=== PATIENT | male | born 1965 | race Two or more races ===

== ENCOUNTER 2024-10-18 08:35 | Emergency (ER) | payer MEDICAID, SELFPAY ==
[2024-10-18 08:11] VITALS: PULSE 82; RESP 18; O2SAT 99
[2024-10-18 08:22] VITALS: BP 133/71; RESP 18; TEMP 36.9; O2SAT 98
[2024-10-18 08:23] VITALS: BMI 23.9
--- NOTE | 2024-10-18 08:41 | XR_ITS ---
Examination: Ribs, left, with PA chest, 5 views Technique: Chest PA, RIBS AP, RPO, LPO, AP coned lower ribs 5 views Exam date and time: October 18, 2024 0843 hours INDICATIONS: Patient fell 3 days ago with injury to the left chest, left rib pain Findings: Normal heart size No pneumothorax Old fracture left sixth rib anteriorly The films are underpenetrated IMPRESSION: No acute fracture
--- NOTE | 2024-10-18 08:44 | EDNOTE_ITS ---
ED Fall Injury RME/HPI General Chief Complaint: Fall Stated Complaint: FALL ON ROCKS X 3 DAYS AGO; PAIN L) BACK/RIBS Time Seen by Provider: 10/18/24 08:40 Source: patient Arrival date/time: 10/18/24 08:35 59-year-old male with no known medical history presents to the emergency room with a chief complaint of pain to his left rib area after a fall that occurred 3 days ago Mode of arrival: ambulatory Limitations: no limitations Related Data Previous Rx's ?Medication ?Instructions ?Recorded acetaminophen 500 mg capsule 1,000 mg (2 x 500 mg) PO Q6H PRN 11/24/19 pain #20 caps nystatin 100,000 unit/gram topical 1 applic topical TI D #60 grams 08/27/22 cream pantoprazole 40 mg tablet,delayed 40 mg PO QDAY #30 ta bs 03/03/24 release (Protonix) Allergies Allergy/AdvReac Type Severity Reaction Status Date / Time No Known Allergies Allergy Verified 10/18/24 08:16 Review of Systems Review of Systems Systems Reviewed: All systems reviewed, normal except as documented Constitutional Constitutional: Reports system reviewed and no additional complaints, except as documented, Denies fatigue, Denies fever(s), Denies headache(s) and Denies weakness Eyes Eyes: Reports system reviewed and no additional complaints, except as documented, Denies blurry vision and Denies change in vision ENT Ears, Nose, Mouth, and Throat: Reports system reviewed and no additional complaints, except as documented, Denies otalgia, Denies headache(s), Denies nasal congestion, Denies throat swelling and Denies vertigo Cardiovascular Cardiovascular: Reports system reviewed and no additional complaints, except as documented, Denies chest pain, Denies dyspnea and Denies dyspnea on exertion Respiratory Respiratory: Reports system reviewed and no additional complaints, except as documented, Denies chest congestion, Denies cough, Denies dyspnea, Denies dyspnea on exertion and Denies wheezing Gastrointestinal Gastrointestinal: Reports system reviewed and no additional complaints, except as documented, Denies abdominal pain, Denies cramping, Denies nausea and Denies vomiting Genitourinary Genitourinary: Reports system reviewed and no additional complaints, except as documented, Denies dysuria and Denies hematuria Musculoskeletal Musculoskeletal: Reports system reviewed and no additional complaints, except as documented, Reports arthralgias and Denies back pain Integumentary/Breasts Skin/Breast: Reports system reviewed and no additional complaints, except as documented and Denies wounds Neurologic Neurologic: Reports system reviewed and no additional complaints, except as documented, Denies confusion, Denies headache(s), Denies lack of coordination, Denies vertigo and Denies weakness Psychiatric Psychiatric: Reports system reviewed and no additional complaints, except as documented, Denies anxiety, Denies confusion, Denies depression, Denies paranoia, Denies suicidal ideation and Denies tactile hallucinations Endocrine Endocrine: Reports system reviewed and no additional complaints, except as documented and Denies fatigue Hematologic/Lymphatic Hematologic/Lymphatic: Reports system reviewed and no additional complaints, except as documented and Denies lymphadenopathy Allergic/Immunologic Allergic/Immunologic: Reports system reviewed and no additional complaints, except as documented, Denies throat swelling, Denies urticaria and Denies wheezing Past Medical History Past Medical History NEUROLOGIC: Negative Seizures CARDIAC: Negative Congestive Heart Failure RESPIRATORY: Negative Chronic Obstructive Pulmonary Disease (COPD) GENITOURINARY: Negative Renal Disease ENDOCRINE: Negative Diabetes Mellitus Type 1 or Diabetes Mellitus Type 2 PSYCHO/SOCIAL: Positive Depression and Anxiety OTHER HISTORY: Positive Blood Transfusions; Negative Blood Transfusion Reaction or Anesthesia Reactions Social History SMOKING STATUS: Never smoker ED Exam General Limitations: Present no limitations General appearance: Present alert and in no apparent distress Head Head exam: Present atraumatic Eye Eye exam: Present normal appearance, PERRL and EOMI ENT ENT exam: Present normal exam, normal oropharynx and mucous membranes moist Neck Neck exam: Present normal inspection, full ROM and trachea midline Chest Chest inspection: Present normal inspection, symmetric chest wall rise and tenderness Expanded Chest Exam Trauma: Absent crepitus, laceration, abrasion, ecchymosis, wound, penetrating wound or surgical incision Breast: left: tenderness Respiratory Respiratory exam: Present normal lung sounds bilaterally; Absent respiratory distress, wheezes, stridor, accessory muscle use or prolonged expiratory phase Cardiovascular Cardiovascular exam: Present regular rate, normal rhythm and normal heart sounds Abdominal Exam Abdominal exam: Present soft and normal bowel sounds Extremities Exam Extremities exam: Present normal inspection and full ROM Back Exam Back exam: Present normal inspection and full ROM Neurological Exam Neurological exam: Present alert, oriented X3 and CN II-XII intact Psychiatric Psychiatric exam: Present normal affect and normal mood Skin Skin exam: Present warm, dry, intact and normal color Course Quality Measures none Orders Category Date Time Status XR ribs LT min 3V w CXR1V Stat Exams 10/18/24 08:41 Completed Vital Signs Vital signs: Vital Signs Temperature 98.4 F 10/18/24 08:22 Respiratory Rate 18 10/18/24 08:22 Blood Pressure 133/71 H 10/18/24 08:22 Pulse Oximetry (%) 98 10/18/24 08:22 Oxygen Delivery Method Room Air 10/18/24 08:22 O2 saturation 98% within normal limits Fall MDM Narrative MDM Narrative:: 59-year-old male with no known medical history presents to the emergency room with a chief complaint of pain to his left rib area after a fall that occurred 3 days ago Patient is hemodynamically stable. There is no tachypnea no tachycardia and O2 saturation is 98% on room air Physical examination shows clear bilateral lung sounds with no wheezing stridor or any abnormal breath sounds Chest x-ray was completed and was negative for any acute rib fractures any pneumothorax or hemothorax. Patient was discharged and educated to follow-up with primary care provider and return to the emergency room for any evidence of worsening signs or symptoms Patient data External records reviewed:: [facility] previous records Clinical information provided by:: patient Social determinants that could affect healthcare access:: none Patient has the following chronic illnesses:: No chronic illness How is presenting disease/condition affected by chronic disease/condition?: no chronic disease Evaluation data The following diagnostics were reviewed and interpreted by me:: lab results and radiology exam(s) Lab and/or radiology exams considered but not ordered:: Labs and radiology exams considered and ordered Interpretation Summary: Left rib x-ray with chest [id number]: Normal heart size No pneumothorax Old fracture left sixth rib anteriorly The films are underpenetrated IMPRESSION: No acute fracture Medications / Prescriptions Medications or Prescriptions considered but not ordered:: No medication given Medication administrations:: No medication given Consultations Consultation(s) initiated? (list below): No Diagnosis Fall Differential Diagnosis: other (Left rib contusion/left rib fracture/pneumonia/hemothorax/pneumothorax) Most likely diagnosis given after review of the tests above:: Rib contusion Admission Indicated Admission indicated?: not indicated Admission Request Was there a request for admission?: No Disposition Plan Disposition Plan: Discharge Discharge Attestation Discharge Attestation: The patient and all family members were given an opportunity to ask questions and understood the discharge instructions. Discharge instructions specifically effects, indications for sooner follow up or return to the emergency department, and the expected course of current diagnosis. Patient condition: Stable Discharge Plan Plan Patient Disposition: HOME (Self Care) Disposition Comment: Stable Prescriptions/Referrals Prescriptions/Med Rec: No Action acetaminophen 500 mg capsule 1,000 mg PO Q6H PRN (Reason: pain) Qty: 20 0RF nystatin 100,000 unit/gram cream 1 applic topical TID Qty: 60 0RF pantoprazole [Protonix] 40 mg tablet,delayed release (DR/EC) 40 mg PO QDAY Qty: 30 1RF Referrals: No Primary/Family,Physician [Primary Care Provider] - In 1 week Problem List Clinical Impression: Contusion of rib on left side Patient/Caregiver Discharge Instructions Education Materials: ED Contusion, Rib Additional Instructions: Por favor, consulte con marcelino m?dico de cabecera en las pr?ximas 24 a 48 horas. Se realiz? patti radiograf?a de cristian costillas y no hay costillas rotas ni ronit?n problema lissa en cristian pulmones. Si hay evidencia de empeoramiento de los signos o s?ntomas, regrese a la paul de emergencias de inmediato. Print Language: Latvian Stand Alone Forms: Yamilet Award Info., Patient Portal Info Letter PA/SUSTAINABLE AGRICULTURE SPECIALIST Supervising Physician ZURDO/GISSELL Supervising Physician: Dr Gilman
[2024-10-18 11:04] VITALS: BP 150/80; PULSE 98; RESP 17; TEMP 37.3; O2SAT 98
== END 2024-10-18 11:09 | disposition home or self-care (01) ==
PROVIDERS: Emergency Provider Emergency Medicine
DX: S20.212A Contusion of left front wall of thorax, initial encounter (principal); W19.XXXA Unspecified fall, initial encounter
CPT/HCPCS: 71101

== ENCOUNTER 2024-12-28 09:06 | Emergency (ER) | payer MEDICAID, SELFPAY ==
[2024-12-28 09:21] VITALS: BP 118/73; PULSE 82; RESP 18; TEMP 36.6; O2SAT 99; BMI 23.3
--- NOTE | 2024-12-28 09:28 | XR_ITS ---
Examination: Foot, right, 3 views Technique: AP, oblique, lateral views foot, 3 views Date and time of exam: December 28, 2024 0946 hours INDICATIONS: Patient fell 2 days ago with injury to the foot, foot pain. FINDINGS: No acute fracture No dislocation No foreign body IMPRESSION: No acute fracture
--- NOTE | 2024-12-28 09:28 | XR_ITS ---
EXAMINATION: Ankle, right 3 views . Technique: Ankle AP, oblique, lateral 3 views Date and time of exam: December 28, 2024 0946 hours INDICATIONS: Patient fell 2 days ago with injury to the ankle, ankle pain. FINDINGS: Severe osteopenia Healed fracture distal fibular shaft No acute fracture IMPRESSION: No acute fracture
--- NOTE | 2024-12-28 09:28 | EDNOTE_ITS ---
Lower Extremity Injury RME/HPI General Chief Complaint: Ankle/Foot Injury Stated Complaint: RIGHT ANKLE PAIN Time Seen by Provider: 12/28/24 09:10 Arrival date/time: 12/28/24 09:06 This is a 59-year-old male that states that he had a right ankle injury approximately 2 years ago. Patient states he reinjured it a couple days ago after slipping. Patient has a mild edema to his right ankle. Patient states it hurts for him to walk on it. Related Data Previous Rx's ?Medication ?Instructions ?Recorded acetaminophen 500 mg capsule 1,000 mg (2 x 500 mg) PO Q6H PRN 11/24/19 pain #20 caps nystatin 100,000 unit/gram topical 1 applic topical TI D #60 grams 08/27/22 cream pantoprazole 40 mg tablet,delayed 40 mg PO QDAY #30 ta bs 03/03/24 release (Protonix) ibuprofen 800 mg tablet 800 mg PO Q6H PRN pain #14 t abs 12/28/24 Allergies Allergy/AdvReac Type Severity Reaction Status Date / Time No Known Allergies Allergy Verified 10/18/24 08:16 Review of Systems Review of Systems Systems Reviewed: All systems reviewed, normal except as documented Past Medical History Past Medical History NEUROLOGIC: Negative Seizures CARDIAC: Negative Congestive Heart Failure RESPIRATORY: Negative Chronic Obstructive Pulmonary Disease (COPD) GENITOURINARY: Negative Renal Disease ENDOCRINE: Negative Diabetes Mellitus Type 1 or Diabetes Mellitus Type 2 PSYCHO/SOCIAL: Positive Depression and Anxiety OTHER HISTORY: Positive Blood Transfusions; Negative Blood Transfusion Reaction or Anesthesia Reactions Social History SMOKING STATUS: Never smoker ED Exam Narrative Physical exam: VITAL SIGNS: Reviewed. GENERAL APPEARANCE: Alert and interactive, follows commands, no acute distress, HEAD AND FACE: Non-traumatic. ENT: PERRL, pink conjunctivitis, eyelid no trauma, Mucous membrane moist. NECK: Supple, nontender, no nuchal rigidity. CHEST: No tenderness, no crepitus, no paradoxical movement, no retractions. LUNGS: breathing even and unlabored HEART: Regular rate, cap refill less than 2 seconds ABDOMEN: Soft, nondistended, no guarding, nontender, no rebound, no masses, NEUROLOGICAL: Gross motor function intact sensory function intact, Appropriate for age. MUSCULOSKELETAL: low back nontender, full range of motion. EXTREMITIES: ,ild swelling to right ankle, no skin breakdown on bilateral foot and leg. Distal neurovascular status intact bilateral foot SKIN: Color pink, dry, no rash, no lacerations, no abrasions, no contusions. Course Quality Measures none Orders Category Date Time Status XR ankle comp RT min 3V Stat Exams 12/28/24 09:28 Completed XR foot comp RT min 3V Stat Exams 12/28/24 09:28 Completed Acetaminophen Tab [Tylenol ES Tab] Med 12/28/24 11:05 Discontinued 1,000 mg PO X1 ONE Ibuprofen Tab [Motrin Tab] Med 12/28/24 11:05 Discontinued 800 mg PO X1 ONE Vital Signs Vital signs: Vital Signs Temperature 97.8 F 12/28/24 09:21 Pulse Rate 82 12/28/24 09:21 Respiratory Rate 18 12/28/24 09:21 Blood Pressure 118/73 12/28/24 09:21 Pulse Oximetry (%) 99 12/28/24 09:21 Oxygen Delivery Method Room Air 12/28/24 09:21 Extremity Injury, Lower MDM Narrative MDM Narrative:: ankle xray: No acute fracture foot x ray: FINDINGS: No acute fracture No dislocation No foreign body IMPRESSION: No acute fracture Will treat patient with Tylenol and ibuprofen. Patient told to rest and ice as needed. Patient told to follow-up with primary provider in 1 to 2 days. Come back to the emergency room symptoms change or worsen. I explained to patient at length that if continued pain may need further studies such as CT scans or MRIs. Patient data External records reviewed:: [facility] previous records Clinical information provided by:: patient Social determinants that could affect healthcare access:: none Patient has the following chronic illnesses:: see hpi How is presenting disease/condition affected by chronic disease/condition?: no chronic disease Evaluation data The following diagnostics were reviewed and interpreted by me:: radiology exam(s) Lab and/or radiology exams considered but not ordered:: none Interpretation Summary: see note Medications / Prescriptions Medications or Prescriptions considered but not ordered:: none Medication administrations:: Medication Administration History Discontinued Medications Acetaminophen (Acetaminophen 500 Mg Tablet) 1,000 mg PO X1 ONE Stop: 12/28/24 11:06 Last Admin: 12/28/24 11:19 Dose: 1,000 mg Documented By: OA Ibuprofen (Ibuprofen Tab 400 Mg Tablet) 800 mg PO X1 ONE Stop: 12/28/24 11:06 Last Admin: 05/13/25 11:19 Dose: 800 mg Documented By: OA see mar Consultations Consultation(s) initiated? (list below): No Diagnosis Most likely diagnosis given after review of the tests above:: contusion Admission Indicated Admission indicated?: not indicated Admission Request Was there a request for admission?: No Disposition Plan Disposition Plan: Discharge Discharge Attestation Discharge Attestation: The patient and all family members were given an opportunity to ask questions and understood the discharge instructions. Discharge instructions specifically effects, indications for sooner follow up or return to the emergency department, and the expected course of current diagnosis. Patient condition: Stable Discharge Plan Plan Patient Disposition: HOME (Self Care) Patient condition on transfer: Stable Prescriptions/Referrals Prescriptions/Med Rec: New ibuprofen 800 mg tablet 800 mg PO Q6H PRN (Reason: pain) Qty: 14 0RF No Action acetaminophen 500 mg capsule 1,000 mg PO Q6H PRN (Reason: pain) Qty: 20 0RF nystatin 100,000 unit/gram cream 1 applic topical TID Qty: 60 0RF pantoprazole [Protonix] 40 mg tablet,delayed release (DR/EC) 40 mg PO QDAY Qty: 30 1RF Referrals: Tyler([facility]),NIKOLAI Duke [Primary Care Provider] - In 1 week Problem List Clinical Impression: Ankle contusion Patient/Caregiver Discharge Instructions Discharge Activity: activity as tolerated Education Materials: Bruises (Contusions) Additional Instructions: Follow up with primary provider in 1-2 days. Come back to ED if symptoms change or worsen Print Language: Rwandan Stand Alone Forms: Yamilet Award Info., Patient Portal Info Letter ZURDO/GISSELL Supervising Physician MONTSE Supervising Physician: vish
[2024-12-28] MEDS: ACETAMINOPHEN 500 MG TABLET 1000 MG PO (11:19)
[2024-12-28] MEDS: IBUPROFEN TAB 400 MG TABLET 800 MG PO (11:19)
== END 2024-12-28 11:32 | disposition home or self-care (01) ==
PROVIDERS: Emergency Provider Emergency Medicine; PCP Nurse Practitioner Family
DX: S90.01XA Contusion of right ankle, initial encounter (principal); X58.XXXA Exposure to other specified factors, initial encounter
CPT/HCPCS: 73610; 73630; 99283; A9270